=== PATIENT | female | born 1975 | race African-American/Black ===

== ENCOUNTER 2024-04-10 15:41 | Emergency (ER) | payer MEDICAID, OTHER ==
[~2024-04-10] VITALS: Ht 167.6 cm; Wt 104.0 kg
[2024-04-10 15:44] VITALS: BP 168/73; PULSE 100; RESP 18; TEMP 97.9; O2SAT 100
[2024-04-10] MEDS: ACETAMINOPHEN 325MG TABLET PO ONE (18:45)
[2024-04-10] MEDS ORDERED: NAPR-1176 MT (21:09)
[2024-04-10] MEDS: ACETAMINOPHEN 325MG TABLET PO NR (23:45)
[2024-04-11 00:33] LABS: *AMPHETAMINES SCREEN URINE NEGATIVE (NEGATIVE); *BENZODIAZEPINES SCREEN URINE NEGATIVE (NEGATIVE)
[2024-04-11 00:34] LABS: *BARBITURATES SCREEN URINE NEGATIVE (NEGATIVE); *COCAINE SCREEN URINE NEGATIVE (NEGATIVE); CANNABINOID URINE SCREEN NEGATIVE (NEGATIVE); ECSTASY MDMA SCREEN URINE NEGATIVE (NEGATIVE); METHADONE URINE SCREEN NEGATIVE (NEGATIVE); OPIATES URINE SCREEN NEGATIVE (NEGATIVE); PHENCYCLIDINE URINE SCREEN PRESUMTIVE POSITIVE (NEGATIVE)
== END 2024-04-11 00:42 | disposition home or self-care (01) ==
LOC: ER 15:41
DX: R51.9 Headache, unspecified (principal); M25.512 Pain in left shoulder; M25.562 Pain in left knee; E11.9 Type 2 diabetes mellitus without complications; I10 Essential (primary) hypertension
CPT/HCPCS: 73030; 73562; 73610; 73630; 70486; 12001; 99284; 80305; Z7610 ×3

== ENCOUNTER 2024-04-13 01:51 | Emergency (ER) | payer MEDICAID ==
[~2024-04-13] VITALS: Ht 167.6 cm; Wt 77.0 kg
[~2024-04-13 01:51] MED LIST: NAPR-1176 MT
[2024-04-13 02:18] VITALS: BP 160/72; PULSE 87; RESP 18; TEMP 98; O2SAT 100
[2024-04-13 03:48] LABS: HEMATOCRIT. 24.9 % (36.0-48.0); HEMOGLOBIN. 7.3 g/dL (12.0-16.0); MEAN CORPUSCULAR HEMOGLOBIN 18.4 pg (28.0-32.0); MEAN CORPUSCULAR HGB CONC 29.5 g/dL (31.0-37.0); MEAN CORPUSCULAR VOLUME 62.5 fL (81.0-99.0); MEAN PLATELET VOLUME 8.8 fl (7.4-10.4); PLATELET 389 x1000/uL (130-400); RED BLOOD CELL COUNT 3.98 mill/uL (4.2-5.4); RED CELL DISTRIBUTION WIDTH 23.2 % (11.6-14.6); WHITE BLOOD COUNT 9.4 x1000/uL (4.5-11.0)
[2024-04-13 03:49] LABS: ADD RBC MORPHOLOGY YES; DIFFERENTIAL COMMENT 1
[2024-04-13 04:03] LABS: CARBON DIOXIDE 26 mEq/L (21-32); CHLORIDE 111 mEq/L (98-107); POTASSIUM 3.9 mEq/L (3.5-5.1); SODIUM 142 mEq/L (136-145)
[2024-04-13 04:04] LABS: CALCIUM 8.9 mg/dL (8.7-10.4)
[2024-04-13 04:08] LABS: CREATININE 0.9 mg/dL (0.6-1.0)
[2024-04-13 04:09] LABS: GLUCOSE 70 mg/dL (70-105); UREA NITROGEN BLOOD 16 mg/dL (9-23)
[2024-04-13 04:10] LABS: ALANINE AMINOTRANSFERASE 14 IU/L (10-49)
[2024-04-13 04:11] LABS: ASPARTATE AMINOTRANSFERASE 24 IU/L (<34); BILIRUBIN TOTAL 0.2 mg/dL (0.1-1.0); CREATINE KINASE 442 IU/L (34-145); PHOSPHORUS 3.4 mg/dL (2.5-4.9); PROTEIN TOTAL 6.7 g/dL (6.0-8.3)
[2024-04-13 04:15] LABS: TROPONIN I HIGH SENSITIVITY 15 ng/L (3.0-34)
[2024-04-13 04:44] LABS: HCG SCREEN NEGATIVE
[2024-04-13 04:59] LABS: BILIRUBIN DIRECT < 0.1 mg/dL (<=3.0)
[2024-04-13 05:09] LABS: ETHANOL BLOOD < 10 mg/dL (<10)
[2024-04-13] MEDS ORDERED: ACET-2708 MT (06:15)
[2024-04-13 09:16] LABS: ANISOCYTOSIS 2+; HYPOCHROMASIA 2+
[2024-04-13 09:18] LABS: PLATELET ESTIMATE NORMAL
== END 2024-04-13 08:43 | disposition home or self-care (01) ==
LOC: ER 02:18
DX: R53.1 Weakness (principal); E11.9 Type 2 diabetes mellitus without complications; I10 Essential (primary) hypertension
CPT/HCPCS: 80076; 80048; 80320; 82550; 84703; 83880; 83690; 83735; 84100; 85025; 84484; 36415; 71045; 70450; 93005; 99285; Z7610; G0480